=== PATIENT | female | born 1950 | race Caucasian/White ===

== ENCOUNTER → 2017-10-08 | Outpatient (CLI) | payer MEDICARE, MEDICAID ==
[2016-09-21 16:51] VITALS: BMI 32.6
[~2017-10-08] MED LIST: ACET-1966 PO; ACET-2007 PO; ACET-2043 PO; ALPR-434 PO; ALPR-445 PO; ALPR-448 PO; ALPR-700 PO; ASCO-440 PO; ASPI-757 PO; BENZ1 PO; CALC-649 PO; CALC-852 PO; CALC600T71 PO; CHOL10005 PO; CYA1000 PO; DEN60I SUBQ; DIA5 PO; DIP25 PO; DOCU-194 PO; DOCU-202 PO; DOCU100T13 PO; DOCU50LI19 PO; ESTR1 PO; FERR-41 PO; FERR250T; FERR324T13 PO; FISH OIL 1,2001 CAP PO; FLUO-177 PO; FLUO40CA76 PO; FLUOXETINE PO; FUR40 PO; GLUC-198 PO; HALO5AMP5 PO; HALO5TAB17 PO; HYDR25CA13 PO; IBUP200C74 PO; IBUP400T13 PO; IRON18TA2 PO; L-THYROXINE; LACT1TAB19 PO; LEVO25TA61 PO; MELA10CA PO; MULT-19 PO; MULT1CAP59 PO; NAPR-723 PO; NYST15CR32 TP; OLA5 PO; OLAN10TA21 PO; OLAN5TAB PO; OLAN5TAB27 PO; OMEG-28 PO; OMEG300C PO; ONDA4TAB9 PO; OSE75 PO; OXYB5TAB86 PO; OXYB92GE PO; OXYC-865 PO; POTA20PA10 PO; PRE20 PO; PREG75CA61 PO; RAN150 PO; TOLT4CAP13 PO; TRAM-420 PO; TRI05T TP; VITA-198 PO; VITA100014 PO; VITA1CAP46 PO; VITAMIN B12; VITAMIN E; WAR2 PO; WARF-12 PO; ZOLP-350 PO; ZOLP10TA5 PO; [UNRECOGNIZED DRUG - CODE] PO; [UNRECOGNIZED DRUG - OTHER] PO
--- NOTE | 2017-10-09 10:36 | RADIOLOGY IMAGING REPORT ---
FACILITY: [facility] - [place] PATIENT NAME: TORIE DEVI : [id number] MR: [id number] V: [id number] EXAM DATE: [id number] ORDERING PHYSICIAN: DAMIEN PALENCIA TECHNOLOGIST: Sydni Figueroa PROCEDURE:BILATERAL DIGITAL SCREENING MAMMOGRAM WITH CAD ASSISTED INTERPRETATION & 3D TOMOSYNTHESIS COMPARISON:Prior mammograms dated 10/04/16, 08/19/15, 03/24/14, 07/11/11 INDICATIONS:SCREENING FINDINGS: Mildly heterogeneous fibroglandular tissue is seen throughout the breasts. The parenchymal pattern has remained stable allowing for difference in mammographic technique & patient positioning. There is no evidence of malignant appearing mass, malignant appearing calcification or other secondary sign of malignancy in either breast. DIAGNOSTIC CATEGORY 1--NEGATIVE. RECOMMENDATIONS: ROUTINE MAMMOGRAM AND CLINICAL EVALUATION. IMPRESSION: BIRADS 1: Negative. No significant abnormality is seen. Dictated by: Kasey Peck M.D. on 10/08/2017 at 17:20 Transcribed by: CORRIE on 10/09/2017 at 8:54 Approved by: Kasey Peck M.D. on 10/09/2017 at 10:35 [facility]
== END ==
LOC: MAMO 02:02
PROVIDERS: ATTEND Family Medicine
DX: Z12.31 Encounter for screening mammogram for malignant neoplasm of breast (principal)
CPT/HCPCS: 77063; 77067

== ENCOUNTER → 2018-03-25 | Outpatient (CLI) | payer MEDICARE, MEDICAID ==
[2016-09-21 16:51] VITALS: BMI 32.6
[~2018-03-25] MED LIST changes: -DOCU-194 PO; +DOCU100C56 PO
--- NOTE | 2018-03-25 14:49 | RADIOLOGY IMAGING REPORT ---
FACILITY: [facility] PATIENT NAME: Saira Ramirez : 1950 MR: [id number] V: [id number] EXAM DATE: ORDERING PHYSICIAN: GLENN DOMINGUEZ TECHNOLOGIST: Location: [facility] - [place] Patient: Saira Ramirez : 1950 Visit/Account:[id number] Date of Sevice: 03/25/2018 Exam type: VENOUS DOPP LOW RIGHT EXTREMIT History: Palpable lump anterior right camarena Comparison: None. Findings: Right lower extremity veins were imaged including the right common femoral vein greater saphenous vei n superficial femoral vein popliteal vein peroneal vein posterior tibial vein anterior tibial vein re vealing no evidence of intraluminal thrombi. The veins were compressible and demonstrated augmentati on. Along the anterior aspect of the right camarena in the location of patient's palpable finding is a c omplex solid space-occupying process measuring approximately 2.9 x 2.7 x 2 cm this may represent ivan nuzhat if the patient does have a history of trauma. If there is no history of trauma a mass lesion sh ould be excluded IMPRESSION: 1. No sonographic evidence DVT involving the right lower extremity veins There is a complex space-occupying process involving the anterior right camarena measuring approximately 2.9 x 2.7 x 2 cm which may represent hematoma if the patient has had a history of trauma. If there i s no history trauma this may represent a mass lesion. Report Dictated By: Kasey Peck MD at 03/25/2018 2:41 PM Report E-Signed By: Kasey Peck MD at 03/25/2018 2:45 PM WSN:[email or web address]
== END ==
LOC: US 12:38
PROVIDERS: ATTEND Family Medicine
DX: R60.9 Edema, unspecified (principal)

== ENCOUNTER 2018-04-21 09:18 | Emergency (ER) | payer MEDICARE, MEDICAID ==
[2016-09-21 16:51] VITALS: Wt 90.7 kg
--- NOTE | 2018-04-21 09:20 | ER Report ---
History and Physical Time Seen By MD: 09:19 HPI/ROS CHIEF COMPLAINT: Right lower extremity pain, proximal calf and knee pain HISTORY OF PRESENT ILLNESS: Patient is a 67-year-old female here with complaints of right lower extremity pain located in the right knee and the right proximal calf and the popliteal fossa. Patient reports that several weeks ago she had fallen while on her treadmill and developed a hematoma. She did have a duplex imaging study completed on 03/25 which identified a suspected hematoma versus mass. Since the patient did have a history of fall hematoma was more likely. Patient reports ongoing pain and mild leg instability. Patient is neurovascularly intact distal to the pain site. She reports a 6 out of 10 level of pain currently. REVIEW OF SYSTEMS: Constitutional: No fever, no chills. Eyes: No discharge. ENT: No sore throat. Cardiovascular: No chest pain, no palpitations. Respiratory: No cough, no shortness of breath. Gastrointestinal: No abdominal pain, no vomiting. Genitourinary: No hematuria. Musculoskeletal: + Right knee and proximal calf pain Skin: No rashes. Neurological: Neurovascularly intact distal to the pain site Allergies: Coded Allergies: Sulfa (Sulfonamide Antibiotics) (Verified Allergy, Severe, HIVES, 04/21/18) codeine (Verified Allergy, Unknown, RASH, 04/21/18) Home Meds Active Scripts Naproxen (NAPROXEN) 500 Mg Tablet, 500 MG PO BID, #60 TAB Prov:MONTY KULKARNI DO 04/21/18 Levothyroxine Sodium (LEVOTHYROXINE SODIUM) 25 Mcg Tablet, 0.025 MG PO QDAY@06, #30 CAP Prov:DAMIEN MILES DO 09/22/16 Reported Medications Ibuprofen (IBUPROFEN) 400 Mg Tablet, 1 TAB PO PRN, TAB 10/26/16 Haloperidol (HALOPERIDOL) 5 Mg Tablet, 5 MG PO QHS 09/21/16 Olanzapine (OLANZAPINE) 5 Mg Tablet, 5 MG PO QHS 09/21/16 Ascorbic Acid (VITAMIN C) 1,000 Mg Tab.chew, 1000 MG PO QDAY, TAB.CHEW 09/21/16 Calcium Carbonate/Vitamin D3 (CALCIUM + VITAMIN D TABLET) 1 Each Tablet, 1 EACH PO QDAY 09/21/16 Fluoxetine Hcl (Prozac) 40 Mg Capsule, 40 MG PO QDAY, #20 0 Refills 01/21/11 Discontinued Reported Medications Tramadol Hcl (TRAMADOL HCL) 50 Mg Tablet, 50-100 MG PO Q4-6H, TAB 10/26/16 Ferrous Sulfate (Slow Release Iron) 250 Mg (50 Mg Iron) Tablet.er, 27 10/26/16 Benztropine Mesylate (BENZTROPINE MESYLATE) 1 Mg Tablet, 1 MG PO QHS 09/21/16 Melatonin (MELATONIN) 10 Mg Capsule, 10 MG PO QHS, CAPSULE 09/21/16 Docusate Sodium (DOC-Q-LACE) 100 Mg Capsule, 100 MG PO TID, CAPSULE 09/21/16 Diazepam (VALIUM) 5 Mg Tablet, 5 MG PO BID, #5 TAB 09/21/16 Denosumab (PROLIA) 60 Mg/1 Ml Injs, 60 MG SUBQ DIRECTED 09/21/16 Hydroxyzine Pamoate (HYDROXYZINE PAMOATE) 25 Mg Capsule, 50 MG PO QHS, CAPSULE 09/21/16 Ferrous Gluconate (FERROUS GLUCONATE) 324 Mg Tablet, 324 MG PO QDAY 09/21/16 Galt-3 Fatty Acids/Fish Oil (FISH OIL CONC 1,000 MG SOFTGEL) 1 Each Capsule, 1 EACH PO QDAY, CAPSULE 09/21/16 Vitamin E Acetate (VITAMIN E) 1,000 Unit Capsule, 1000 UNIT PO QDAY, CAPSULE 09/21/16 Hx Smoking: No Smoking Status: Never Smoker Hx Substance Use Disorder: No Hx Alcohol Use: No Constitutional Vital Sign - Last 24 Hours 04/21/18 09:28 Temp 98.5 Pulse 79 Resp 12 B/P (MAP) 107/48 Pulse Ox 93 O2 Delivery Room Air Physical Exam General Appearance: The patient is alert, has no immediate need for airway protection and no signs of toxicity. No acute distress Eyes: Pupils equal and round no pallor or injection. Neurological: Neurovascularly intact Skin: Warm and dry, no rashes. Musculoskeletal: Neck is supple non tender. Mild tenderness on palpation of the popliteal fossa and proximal calf DIFFERENTIAL DIAGNOSIS: After history and physical exam differential diagnosis was considered for hematoma, Julian's cyst, DVT, muscle spasm Medical Decision Making EKG/Imaging Imaging Location: [facility] - [place] Patient: Saira Ramirez : 1950 Visit/Account:[id number] Date of Sevice: 04/21/2018 KNEE 3 VIEW RIGHT History: Right knee pain. Comparison study: None. Findings: There is diffuse osteopenia but no fracture involving the right knee. There are diffuse findings of joint space narrowing suggestive of osteoarthrosis but there is no chondrocalcinosis or calcified loose bodies. There is a small joint effusion. IMPRESSION: 1. Osteopenia without fracture. 2. Diffuse findings of mild joint space narrowing suggestive of osteoarthrosis. 3. Small joint effusion. Please see duplex imaging report, negative for DVT ED Course/Re-evaluation ED Course Patient is a 67-year-old female here with complaints of right proximal calf pain, knee pain which has been ongoing for several weeks since the patient fell while on a treadmill. She was diagnosed with a hematoma after duplex imaging study on March 25. Patient describes a mild instability of the right knee prompting x-ray imaging and a duplex was also completed due to the patient's complaint of right calf swelling and pain. X-ray imaging showed no acute findings but signs of DJD. Patient did report having prior knee injections in that leg and she was advised to follow-up with Dr. Fonseca or bone and joint. Nick wrap was applied for support and alleviation of edema. Patient was neurovascularly intact. She is given a prescription for naproxen and advised to take 1 tablet twice a day for anti-inflammatory effects, elevate the leg and apply ice packs as needed for swelling. Patient was in no acute distress at time of discharge. Decision to Disposition Date: Apr 21, 2018 Decision to Disposition Time: 10:53 Depart Departure Latest Vital Signs Vital Signs Date Time Temp Pulse Resp B/P (MAP) Pulse Ox O2 Delivery O2 Flow Rate FiO2 04/21/18 09:28 98.5 79 12 107/48 93 Room Air Impression: Primary Impression: Arthritis Additional Impression: Knee pain, right Condition: Improved Disposition: HOME OR SELF-CARE Referrals: DAMIEN PALENCIA MD (PCP) New Scripts Naproxen (NAPROXEN) 500 Mg Tablet 500 MG PO BID, #60 TAB Prov: MONTY KULKARNI DO 04/21/18 Patient Instructions: Arthritis (GEN) Additional Instructions: You may take 1 tablet and naproxen or 500 mg twice daily. You may keep your Nick wrap in place for the stability and alleviation of swelling. Please return promptly if you develop worsening pain, numbness, weakness of the leg, fevers, swelling. Please follow-up with orthopedics for further evaluation. Problem Qualifiers MONTY KULKARNI DO Apr 21, 2018 09:20
[2018-04-21] MEDS ORDERED: traMADol 50 MG TAB PO ONE (09:35)
--- NOTE | 2018-04-21 10:01 | RADIOLOGY IMAGING REPORT ---
FACILITY: [facility] - [place] PATIENT NAME: Saira Ramirez : 1950 MR: [id number] V: [id number] EXAM DATE: ORDERING PHYSICIAN: MONTY KULKARNI TECHNOLOGIST: Location: [facility] Patient: Saira Ramirez : 1950 Visit/Account:[id number] Date of Sevice: 04/21/2018 KNEE 3 VIEW RIGHT History: Right knee pain. Comparison study: None. Findings: There is diffuse osteopenia but no fracture involving the right knee. There are diffuse findings of joint space narrowing suggestive of osteoarthrosis but there is no asha drocalcinosis or calcified loose bodies. There is a small joint effusion. IMPRESSION: 1. Osteopenia without fracture. 2. Diffuse findings of mild joint space narrowing suggestive of osteoarthrosis. 3. Small joint effusion. Report Dictated By: Vincent Ramirez MD at 04/21/2018 9:57 AM Report E-Signed By: Vincent Ramirez MD at 04/21/2018 9:58 AM WSN:[id number]
[2018-04-21 10:30] VITALS: BP 93/46
[2018-04-21] MEDS ORDERED: NAPR500T31 PO (10:51)
--- NOTE | 2018-04-21 11:15 | RADIOLOGY IMAGING REPORT ---
FACILITY: [facility] PATIENT NAME: Saira Ramirez : 1950 MR: [id number] V: [id number] EXAM DATE: ORDERING PHYSICIAN: MONTY KULKARNI TECHNOLOGIST: Location: [facility] - [place] Patient: Saira Ramirez : 1950 Visit/Account:[id number] Date of Sevice: 04/21/2018 VENOUS DOPP LOW RIGHT EXTREMIT HISTORY: right proximal calf pain Concern for deep venous thrombus. COMPARISON: None. FINDINGS: Grayscale, duplex and color Doppler interrogation of the right lower extremity deep veins from common femoral vein to proximal calf was completed. Compression was performed where it was possible. The le ft common femoral vein was not evaluated. Common femoral vein - Negative. Femoral vein - Negative. Deep femoral vein - Negative. Popliteal vein - Negative. Visualized deep calf veins - Negative. Popliteal fossa: Negative. Contralateral (left) common femoral vein: Not imaged. IMPRESSION: No evidence of acute deep venous thrombosis in the visualized veins of the right lower extremity. Report Dictated By: Henrique Dykes at 04/21/2018 11:09 AM Report E-Signed By: Henrique Dykes at 04/21/2018 11:10 AM WSN:[id number]
== END 2018-04-21 11:00 | disposition home or self-care (01) ==
LOC: ER 09:50
DX: M17.11 Unilateral primary osteoarthritis, right knee (principal); M85.861 Other specified disorders of bone density and structure, right lower leg
CPT/HCPCS: 73562; 93971; 99284; A9270

== ENCOUNTER 2018-11-28 14:13 | Emergency (ER) | payer MEDICARE, MEDICAID ==
[2016-09-21 16:51] VITALS: Wt 90.7 kg
--- NOTE | 2018-11-28 14:24 | ER Report ---
History and Physical Time Seen By MD: 14:22 HPI/ROS CHIEF COMPLAINT: Fall, head injury HISTORY OF PRESENT ILLNESS: Patient is a 68-year-old female here with complaints of a fall with a left sided facial laceration above the left eyebrow, mild headache, mild C-spine tenderness, left 2nd and 3rd finger pain. Patient reports that she her left knee gave out causing her to fall. She does have chronic knee pain. Patient denies loss of consciousness. She does report having some bleeding from the eyebrow laceration. REVIEW OF SYSTEMS: Constitutional: No fever, no chills. Eyes: No discharge.+ Laceration above left eyebrow ENT: No sore throat. Cardiovascular: No chest pain, no palpitations. Respiratory: No cough, no shortness of breath. Gastrointestinal: No abdominal pain, no vomiting. Genitourinary: No hematuria. Musculoskeletal: Left knee, left 2nd and 3rd finger. Skin: Laceration/abrasion above left eyebrow Neurological: No headache, moving all extremities Allergies: Coded Allergies: Sulfa (Sulfonamide Antibiotics) (Verified Allergy, Severe, HIVES, 11/28/18) codeine (Verified Allergy, Unknown, RASH, 11/28/18) Home Meds Reported Medications Ibuprofen (IBUPROFEN) 400 Mg Tablet, 1 TAB PO PRN, TAB 10/26/16 Haloperidol (HALOPERIDOL) 5 Mg Tablet, 5 MG PO QHS 09/21/16 Ascorbic Acid (VITAMIN C) 1,000 Mg Tab.chew, 1000 MG PO QDAY, TAB.CHEW 09/21/16 Calcium Carbonate/Vitamin D3 (CALCIUM + VITAMIN D TABLET) 1 Each Tablet, 1 EACH PO QDAY 09/21/16 Fluoxetine Hcl (Prozac) 40 Mg Capsule, 40 MG PO QDAY, #20 0 Refills 01/21/11 Discontinued Reported Medications Olanzapine (OLANZAPINE) 5 Mg Tablet, 5 MG PO QHS 09/21/16 Discontinued Scripts Levothyroxine Sodium (LEVOTHYROXINE SODIUM) 25 Mcg Tablet, 0.025 MG PO QDAY@06, #30 CAP Prov:DAMIEN MILES DO 09/22/16 Hx Smoking: No Smoking Status: Never Smoker Hx Substance Use Disorder: No Hx Alcohol Use: No Constitutional Vital Sign - Last 24 Hours 11/28/18 11/28/18 11/28/18 11/28/18 14:19 14:30 15:00 15:15 Temp 99.0 Pulse 76 75 75 Resp 12 B/P (MAP) 127/64 122/54 (76) 123/53 (76) Pulse Ox 90 90 94 O2 Delivery Room Air 11/28/18 11/28/18 15:30 15:45 Pulse 73 72 B/P (MAP) 123/65 (84) Pulse Ox 91 93 Physical Exam General Appearance: The patient is alert, has no immediate need for airway protection and no signs of toxicity. No acute distress, alert and oriented Eyes: Pupils equal and round no pallor or injection. ENT, Mouth: Mucous membranes are moist. Respiratory: There are no retractions, lungs are clear to auscultation. Cardiovascular: Regular rate and rhythm. [ ] Gastrointestinal: Abdomen is soft and non tender, no masses, bowel sounds normal. Neurological: No focal neurological deficits, alert and oriented Skin: Abrasion/laceration above left eyebrow Musculoskeletal: Neck is supple non tender. Tender left knee, tender left 2nd and 3rd digits DIFFERENTIAL DIAGNOSIS: After history and physical exam differential diagnosis was considered for fracture, contusion, abrasion, intracranial bleed Medical Decision Making EKG/Imaging Imaging Please see official radiology reports ED Course/Re-evaluation ED Course Patient is a 68-year-old female here with complaints of laceration above left eyebrow after a fall, patient reportedly had her left knee give out on her which is chronic and complains of left 2nd and 3rd digit pain. Patient is neurovascularly intact at time of evaluation, alert and oriented. CT imaging of the head and C-spine were completed due to some tenderness in the C-spine as well. X-ray imaging of the left hand was completed. There are no acute fractures on x-ray imaging of the hand, C-spine and CT of the head showed no acute findings. Patient was given Tylenol for pain control. Abrasion was cleaned and bandaged, left knee was Nick wrapped for stability. Return precautions provided, close PCP follow-up recommended. Decision to Disposition Date: Nov 28, 2018 Decision to Disposition Time: 15:42 Depart Departure Latest Vital Signs Vital Signs Date Time Temp Pulse Resp B/P (MAP) Pulse Ox O2 Delivery O2 Flow Rate FiO2 11/28/18 15:45 72 93 11/28/18 15:30 123/65 (84) 11/28/18 14:19 99.0 12 Room Air Impression: Primary Impression: Fall at home Additional Impression: Contusion Condition: Improved Disposition: HOME OR SELF-CARE Referrals: DAMIEN PALENCIA MD (PCP) Patient Instructions: Fall Prevention (ED) Additional Instructions: Please drink plenty of water. Please use an Nick wrap or brace for knee support. Please follow-up with your family doctor in the next 24-48 hours. Please return promptly if you develop worsening pain, recurrent falls, nausea, vomiting. Problem Qualifiers MONTY KULKARNI DO Nov 28, 2018 14:24
[2018-11-28] MEDS ORDERED: ACETAMINOPHEN 500 MG TAB PO ONE (14:40)
[2018-11-28 15:30] VITALS: BP 123/65
--- NOTE | 2018-11-28 15:36 | RADIOLOGY IMAGING REPORT ---
FACILITY: [facility] [place] PATIENT NAME: Saira Ramirez : 1950 MR: [id number] V: [id number] EXAM DATE: ORDERING PHYSICIAN: MONTY KULKARNI TECHNOLOGIST: Location: [facility] - [place] Patient: Saira Ramirez : 1950 Visit/Account:[id number] Date of Sevice: 11/28/2018 CT Head without contrast and CT Cervical spine: Indication: Fall. Comparison: 10/26/2016. Technique: CT head: Axial CT images were obtained through the brain from the skull base to the verte x without administration of IV contrast. Reformatted coronal and sagittal images were also obtained. Technique: CT cervical spine: Axial CT imaging of the cervical spine was performed. 2-D sagittal and coronal CT reformats were also obtained. One of the following dose optimization techniques was utilized in the performance of this exam: Autom ated exposure control; adjustment of the mA and/or kV according to the patient's size; or use of an i terative reconstruction technique. Specific details can be referenced in the facility's radiology C T exam operational policy. FINDINGS: CT head: No intracranial bleed, midline shift, mass affect, extra-axial fluid collection or hydrocephalus. Th e right cerebellar hemisphere again shows a hypodense roundish lesion measuring 3.7 x 3.7 cm Hounsfie ld unit of 13. This is unchanged dating back to May 2015 and may represent an arachnoid cyst. No associated sequelae. Age-related cerebral atrophy. Periventricular white matter ischemic changes consistent small vessel disease. Olson/white matter differentiation appears normal. Bony structures show no fractures or lesions. Sinuses and mastoids visualized are clear. Leftward deviation nasal septum. CT cervical spine: The vertebral bodies are aligned. No acute fracture or facet dislocation. No bony lesions. The rig ht posterior arch of of T3 appears to have a defect which may be congenital. No focal abnormality. Mild degenerative changes are mainly facet arthropathy. No bony canal stenosis or significant neural foramina narrowing. The endplates are maintained. No obvious disc herniation. Prevertebral soft t issues and surrounding soft tissues are unremarkable. Lung apices are clear. IMPRESSION: 1. CT of the brain shows a stable appearance without acute abnormality. 2. No acute osseous or acute alignment abnormality of the cervical spine. Report Dictated By: Stephen Ray at 11/28/2018 3:16 PM Report E-Signed By: Stephen Ray at 11/28/2018 3:31 PM WSN:[email or web address]
--- NOTE | 2018-11-28 15:37 | RADIOLOGY IMAGING REPORT ---
FACILITY: [facility] PATIENT NAME: Saira Ramirez : 1950 MR: [id number] V: [id number] EXAM DATE: ORDERING PHYSICIAN: MONTY KULKARNI TECHNOLOGIST: Location: [facility] - [place] Patient: Saira Ramirez : 1950 Visit/Account:[id number] Date of Sevice: 11/28/2018 CT Head without contrast and CT Cervical spine: Indication: Fall. Comparison: 10/26/2016. Technique: CT head: Axial CT images were obtained through the brain from the skull base to the verte x without administration of IV contrast. Reformatted coronal and sagittal images were also obtained. Technique: CT cervical spine: Axial CT imaging of the cervical spine was performed. 2-D sagittal and coronal CT reformats were also obtained. One of the following dose optimization techniques was utilized in the performance of this exam: Autom ated exposure control; adjustment of the mA and/or kV according to the patient's size; or use of an i terative reconstruction technique. Specific details can be referenced in the facility's radiology C T exam operational policy. FINDINGS: CT head: No intracranial bleed, midline shift, mass affect, extra-axial fluid collection or hydrocephalus. Th e right cerebellar hemisphere again shows a hypodense roundish lesion measuring 3.7 x 3.7 cm Hounsfie ld unit of 13. This is unchanged dating back to May 2015 and may represent an arachnoid cyst. No associated sequelae. Age-related cerebral atrophy. Periventricular white matter ischemic changes consistent small vessel disease. Olson/white matter differentiation appears normal. Bony structures show no fractures or lesions. Sinuses and mastoids visualized are clear. Leftward deviation nasal septum. CT cervical spine: The vertebral bodies are aligned. No acute fracture or facet dislocation. No bony lesions. The rig ht posterior arch of of T3 appears to have a defect which may be congenital. No focal abnormality. Mild degenerative changes are mainly facet arthropathy. No bony canal stenosis or significant neural foramina narrowing. The endplates are maintained. No obvious disc herniation. Prevertebral soft t issues and surrounding soft tissues are unremarkable. Lung apices are clear. IMPRESSION: 1. CT of the brain shows a stable appearance without acute abnormality. 2. No acute osseous or acute alignment abnormality of the cervical spine. Report Dictated By: Stephen Ray at 11/28/2018 3:16 PM Report E-Signed By: Stephen Ray at 11/28/2018 3:31 PM WSN:[email or web address]
--- NOTE | 2018-11-28 15:41 | RADIOLOGY IMAGING REPORT ---
FACILITY: [facility] PATIENT NAME: Saira Ramirez : 1950 MR: [id number] V: [id number] EXAM DATE: ORDERING PHYSICIAN: MONTY KULKARNI TECHNOLOGIST: Location: [facility] - [place] Patient: Saira Ramirez : 1950 Visit/Account:[id number] Date of Sevice: 11/28/2018 HAND COMPLETE LEFT HISTORY: Injury COMPARISON: None FINDINGS: AP lateral and oblique views of the left hand demonstrates diffuse osteopenia. There is no evidence of acute fracture or dislocation. There is no evidence of lytic or blastic bony lesions. IMPRESSION: No evidence of acute osseous injury. Report Dictated By: Sabas Astorga at 11/28/2018 3:09 PM Report E-Signed By: Sabas Astorga at 11/28/2018 3:34 PM WSN:[id number]
== END 2018-11-28 16:06 | disposition home or self-care (01) ==
LOC: ER 14:42
DX: S01.112A Laceration without foreign body of left eyelid and periocular area, initial encounter (principal); M54.2 Cervicalgia; R51 Headache; S00.12XA Contusion of left eyelid and periocular area, initial encounter
CPT/HCPCS: 70450; 72125; 73130; 99284; A9270

== ENCOUNTER → 2018-11-28 | Outpatient (CLI) | payer MEDICARE, MEDICAID ==
[2016-09-21 16:51] VITALS: BMI 32.6
[~2018-11-28] MED LIST changes: +NAPR500T31 PO
== END ==
LOC: AMB 13:57
PROVIDERS: ATTEND Nurse Practitioner
DX: R51 Headache (principal); S01.119A Laceration without foreign body of unspecified eyelid and periocular area, initial encounter; W18.39XA Other fall on same level, initial encounter
CPT/HCPCS: A0425; A0429